=== PATIENT | female | born 1990 | race Caucasian/White ===

== ENCOUNTER 2017-07-16 23:31 | Emergency (ER) | payer SELFPAY ==
--- NOTE | 2017-07-16 23:58 | EDM.PDOC ---
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 Was in May which would put her at 9 weeks . She presents today with complaints of lower abdominal cramping that has been on and off and some vaginal spotting when she wipes with the toilet tissue. She has not had to use a pad and less sexual intercourse was 5 days ago. She has no nausea vomiting fever chills or diffuse abdominal pain and no urinary complaints. Had no STDs in the past or any PID or surgical intervention of her tubes or ovaries. Patient has delivered in the past in [place] as one of her children was a preemie and she plans on delivering there again. She has not started care as she just did a test to find out she was . Patient has been eating and drinking normally Review of systems: As per history of present illness and below otherwise all systems reviewed and negative. Past medical history: As per history of present illness and as reviewed below otherwise noncontributory. Surgical history: As per history of present illness and as reviewed below otherwise noncontributory. Social history: No reported history of drug or alcohol abuse. Family history: As per history of present illness and as reviewed below otherwise noncontributory. Physical exam: Gen.: Well-developed well-nourished female who is nontoxic and ambulatory in the ED. Vital signs of the note by me HEENT: Atraumatic, normocephalic, negative for conjunctival pallor or scleral icterus, mucous membranes moist, throat clear, neck supple, nontender, trachea midline. Lungs: Clear to auscultation, breath sounds equal bilaterally, chest nontender. Heart: S1S2, regular and rhythm on my evaluation and no overt murmurs Abdomen: Soft, nondistended, nontender. NABS Pelvis: Stable nontender. Genitourinary: Deferred. Rectal: Deferred. Extremities: Atraumatic, negative for cords or calf pain. Neurovascular unremarkable. Neuro: Awake, alert, oriented. Cranial nerves II through XII unremarkable. Cerebellum unremarkable. Motor and sensory unremarkable throughout. Exam nonfocal. Diagnostics: CBC UA, urine culture if indicated, serum quantitative hCG pelvic ultrasound Therapeutics: Patient was offered Tylenol for the cramping and she defers at this time Patient is O- so RhoGam was ordered and will be given Patient is aware of all testing results including the ultrasound revealing a possible gestational sac in the uterus but also bilateral ovarian cyst with a complex ovarian cyst on the left. This would explain her bilateral lower back pain. She is aware that this may be a that is not progressing normally and that she will have to have a repeat hormone level done in 2 days and close follow-up in our clinic. Advised her to call the clinic this morning at 8 AM to get an appointment in 2 days and to have her hormone level repeated in 2 days. Advised on reasons to return to the ER, hydration, and strict pelvic rest Impression: Threatened Definitive disposition and diagnosis as appropriate pending reevaluation and review of above. Lower Back Pain Score (Numeric/FACES): 6 - Related Data Allergies Allergy/AdvReac Type Severity Reaction Status Date / Time No Known Allergies Allergy Verified 07/16/17 23:43 Home Meds: Home Meds . 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 History: subchorionic hemmorrhage during one of her past pregnancies, had this child 2 months early, Musculoskeletal History: Reports: None Neurological History: Reports: None Psychiatric History: Reports: None Endocrine/Metabolic History: Reports: None Hematologic History: Reports: None Immunologic History: Reports: None Oncologic (Cancer) History: Reports: None Dermatologic History: Reports: None - Infectious Disease History Infectious Disease History: Reports: Chicken Pox - Past Surgical History Head Surgeries/Procedures: Reports: None HEENT Surgical History: Reports: Other (See Below) Other HEENT Surgeries/Procedures: benign cyst from behind left ear. Musculoskeletal Surgical History: Reports: None Dermatological Surgical History: Reports: None Social & Family History - Family History Family Medical History: Noncontributory - Tobacco Use Smoking Status *Q: Never Smoker Second Hand Smoke Exposure: No - Caffeine Use Caffeine Use: Reports: Energy Drinks, Soda - Alcohol Use Days Per Week of Alcohol Use: 0 - Recreational Drug Use Recreational Drug Use: No ED ROS GENERAL - Review of Systems Review Of Systems: ROS reveals no pertinent complaints other than HPI. ED EXAM, GENERAL - Physical Exam Exam: See Below (See dictation) Course - Vital Signs Last Recorded V/S: Last Vital Signs Temp 36.6 C 07/16/17 23:40 Pulse 108 H 07/16/17 23:40 Resp 16 07/16/17 23:40 BP 139/91 H 07/16/17 23:40 Pulse Ox 98 07/16/17 23:40 - Orders/Labs/Meds Orders: Active Orders 24 hr Category Date Time Status OB 1st Tri Sgl 1st Gest [US] Stat Exams 07/16/17 23:53 Taken Labs: Laboratory Tests 07/16/17 07/17/17 07/17/17 Range/Units 23:56 00:07 00:07 WBC 7.72 (4.0-11.0) K/uL RBC 4.49 (4.30-5.90) M/uL Hgb 12.9 (12.0-16.0) g/dL Hct 38.0 (36.0-46.0) % MCV 84.6 (80.0-98.0) fL MCH 28.7 (27.0-32.0) pg MCHC 33.9 (31.0-37.0) g/dL RDW Std Deviation 41.7 (28.0-62.0) fl RDW Coeff of Suki 14 (11.0-15.0) % Plt Count 319 (150-400) K/uL MPV 10.10 (7.40-12.00) fL Neut % (Auto) 53.8 (48.0-80.0) % Lymph % (Auto) 36.0 (16.0-40.0) % Davie % (Auto) 7.8 (0.0-15.0) % Eos % (Auto) 1.9 (0.0-7.0) % Baso % (Auto) 0.5 (0.0-1.5) % Neut # (Auto) 4.2 (1.4-5.7) K/uL Lymph # (Auto) 2.8 H (0.6-2.4) K/uL Davie # (Auto) 0.6 (0.0-0.8) K/uL Eos # (Auto) 0.2 (0.0-0.7) K/uL Baso # (Auto) 0.0 (0.0-0.1) K/uL Nucleated RBC % 0.0 /100WBC Nucleated RBCs # 0 K/uL HCG, Quant 3140.4 mIU/mL Urine Color YELLOW Urine Appearance CLEAR Urine pH 6.0 (5.0-8.0) Ur Specific [place] <= 1.005 (1.001-1.035) Urine Protein NEGATIVE (NEGATIVE) mg/dL Urine Glucose (UA) NEGATIVE (NEGATIVE) mg/dL Urine Ketones NEGATIVE (NEGATIVE) mg/dL Urine Occult Blood NEGATIVE (NEGATIVE) Urine Nitrite NEGATIVE (NEGATIVE) Urine Bilirubin NEGATIVE (NEGATIVE) Urine Urobilinogen 0.2 (<2.0) EU/dL Ur Leukocyte Esterase NEGATIVE (NEGATIVE) Urine RBC 0-1 (0-2/HPF) Urine WBC 0-1 (0-5/HPF) Ur Epithelial Cells FEW (NONE-FEW) Urine Bacteria FEW (NEGATIVE) Blood Type Antibody Screen 07/17/17 Range/Units 00:07 WBC (4.0-11.0) K/uL RBC (4.30-5.90) M/uL Hgb (12.0-16.0) g/dL Hct (36.0-46.0) % MCV (80.0-98.0) fL MCH (27.0-32.0) pg MCHC (31.0-37.0) g/dL RDW Std Deviation (28.0-62.0) fl RDW Coeff of Suki (11.0-15.0) % Plt Count (150-400) K/uL MPV (7.40-12.00) fL Neut % (Auto) (48.0-80.0) % Lymph % (Auto) (16.0-40.0) % Davie % (Auto) (0.0-15.0) % Eos % (Auto) (0.0-7.0) % Baso % (Auto) (0.0-1.5) % Neut # (Auto) (1.4-5.7) K/uL Lymph # (Auto) (0.6-2.4) K/uL Davie # (Auto) (0.0-0.8) K/uL Eos # (Auto) (0.0-0.7) K/uL Baso # (Auto) (0.0-0.1) K/uL Nucleated RBC % /100WBC Nucleated RBCs # K/uL HCG, Quant mIU/mL Urine Color Urine Appearance Urine pH (5.0-8.0) Ur Specific [place] (1.001-1.035) Urine Protein (NEGATIVE) mg/dL Urine Glucose (UA) (NEGATIVE) mg/dL Urine Ketones (NEGATIVE) mg/dL Urine Occult Blood (NEGATIVE) Urine Nitrite (NEGATIVE) Urine Bilirubin (NEGATIVE) Urine Urobilinogen (<2.0) EU/dL Ur Leukocyte Esterase (NEGATIVE) Urine RBC (0-2/HPF) Urine WBC (0-5/HPF) Ur Epithelial Cells (NONE-FEW) Urine Bacteria (NEGATIVE) Blood Type O NEGATIVE Antibody Screen NEGATIVE Meds: Medications Discontinued Medications Generic Name Dose Route Start Last Admin Trade Name Freq PRN Reason Stop Dose Admin Rho Immune Globulin 300 mcg 07/17/17 01:17 Rhophylac IM 07/17/17 01:18 ONETIME ONE Departure - Departure Time of Disposition: 01:48 Disposition: Home, Self-Care 01 Condition: Good Clinical Impression: Threatened - Discharge Information Referrals: PCP,None [Primary Care Provider] - Forms: ED Department Discharge Additional Instructions: The following information is given to patients seen in the emergency department who are being discharged to home. This information is to outline your options for follow-up care. We provide all patients seen in our emergency department with a follow-up referral. The need for follow-up, as well as the timing and circumstances, are variable depending upon the specifics of your emergency department visit. If you don't have a primary care physician on staff, we will provide you with a referral. We always advise you to contact your personal physician following an emergency department visit to inform them of the circumstance of the visit and for follow-up with them and/or the need for any referrals to a consulting specialist. The emergency department will also refer you to a specialist when appropriate. This referral assures that you have the opportunity for followup care with a specialist. All of these measure are taken in an effort to provide you with optimal care, which includes your followup. Under all circumstances we always encourage you to contact your private physician who remains a resource for coordinating your care. When calling for followup care, please make the office aware that this follow-up is from your recent emergency room visit. If for any reason you are refused follow-up, please contact the [facility] emergency department at and ask to speak to the emergency department charge nurse. [facility] Primary care-Women's Health [address] [address] Push hydration pelvic rest, nothing in vagina until you're followed up in the clinic, and get your hormone level rechecked in 2 days as prescribed. Please call the clinic first thing in the morning at 8 AM to get a follow-up appointment in 2-3 days and return to the ER as needed and as discussed. - My Orders Last 24 Hours: My Active Orders 07/16/17 23:53 OB 1st Tri Sgl 1st Gest [US] Stat - Assessment/Plan Last 24 Hours: My Active Orders 07/16/17 23:53 OB 1st Tri Sgl 1st Gest [US] Stat
[2017-07-17] MEDS ORDERED: Rho(D) Immune Globulin 300 MCG/2 ML Syringe IM ONE (01:17)
[2017-07-17 02:25] VITALS: BP 113/59
--- NOTE | 2017-07-17 10:07 | US ---
EXAM DATE: 07/16/17 PATIENT'S AGE: 27 Patient: LANRE MURILLO Facility: [place], [place] Site . Site : 1990 Study: US OB Pelvis [id number]/17/2017 1:12:46 AM Ordering Physician: Reyna Kang Final Report: INDICATION: WITH VAGINAL BLEEDING, CRAMPING. HCG LEVEL 3140. TECHNIQUE: Ultrasound OB pelvis transabdominal and transvaginal. Real time austin scale imaging of the pelvis was performed. COMPARISON: None FINDINGS: Small amount of fluid in the endometrial canal with possible gestational sac in the left superior margin of the endometrium. Possible gestational sac measures 10 x 12 millimeters. No pole or yolk sac identified. Endometrial thickness measures 12 millimeters. Complex left ovarian cyst with peripheral color Doppler flow, measuring 2.8 x 3.3 x 2.9 centimeters. Right ovarian cyst with peripheral color Doppler flow, measuring 2.3 x 1.9 centimeters. No definite echogenic free pelvic fluid identified. IMPRESSION: 1. Likely small intrauterine gestational sac, possibly malpositioned in the left fundal endometrium. No pole or yolk sac identified, possibly due to early gestation or failed 1st trimester . 2. Mildly complex bilateral ovarian cysts with peripheral color Doppler flow. Findings are nonspecific with possible ectopic included in differential but less likely etiology due to lack of significant echogenic free pelvic fluid. Left ovary has sonographic appearance suggestive of possible hemorrhagic cyst with right ovary suggesting a corpus luteum cyst. Recommend followup pelvic ultrasound within 1 week with close clinical followup and correlation with HCG levels. Dictated by Mahad Gurrola MD @ 07/17/2017 1:26:09 AM Dictated by: Mahad Gurrola MD @ 07/17/2017 01:26:22 ----- ADDENDUM ----- ADDENDUM: 1. 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 Dictated by Mahad Gurrola MD @ Jul 17 2017 1:48AM (Electronic Signature) Report Signed by Proxy. DAVID
== END 2017-07-17 02:22 | disposition home or self-care (01) ==
LOC: MW.ED 23:31
DX: O20.0 Threatened abortion (principal); O34.81 Maternal care for other abnormalities of pelvic organs, first trimester; N83.202 Unspecified ovarian cyst, left side; N83.11 Corpus luteum cyst of right ovary; Z3A.01 Less than 8 weeks gestation of pregnancy
CPT/HCPCS: 36415; 76801; 81001; 84702; 85025; 86850; 86900; 86901; 96372; 99284; J2790

== ENCOUNTER 2017-10-14 00:46 | Emergency (ER) | payer BC ==
[2017-10-14 01:04] VITALS: BP 126/67
[2017-10-14] MEDS ORDERED: Benzocaine 20% Topical Spray UD MUCMEM ONE (01:05)
[2017-10-14] MEDS ORDERED: Lidocaine 2% Viscous Solution 15 ML Cup PO ONE (01:05)
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
== END 2017-10-14 01:30 | disposition home or self-care (01) ==
LOC: MW.ED 00:46
DX: O99.612 Diseases of the digestive system complicating pregnancy, second trimester (principal); K08.89 Other specified disorders of teeth and supporting structures; Z3A.17 17 weeks gestation of pregnancy
CPT/HCPCS: 99283; A9270

== ENCOUNTER 2018-02-25 17:18 | Emergency (ER) | payer BC, MEDICAID ==
--- NOTE | 2018-02-25 17:30 | EDM.PDOC ---
ED HPI GENERAL MEDICAL PROBLEM - General Chief Complaint: Behavioral/Psych Stated Complaint: ANXIETY/ 37 WEEKS Time Seen by Provider: 02/25/18 17:22 - History of Present Illness INITIAL COMMENTS - FREE TEXT/NARRATIVE: HISTORY AND PHYSICAL: History of present illness: Patient 27-year-old female presents with a concern of acute anxiety she recently had her children removed from the home per child protective services and presents here with anxiety related to this event she is 37 weeks she denies any abdominal pain vaginal discharge bleeding fever chills nausea vomiting or any other complaints. Review of systems: As per history of present illness and below otherwise all systems reviewed and negative. Past medical history: As per history of present illness and as reviewed below otherwise noncontributory. Surgical history: As per history of present illness and as reviewed below otherwise noncontributory. Social history: No reported history of drug or alcohol abuse. Family history: As per history of present illness and as reviewed below otherwise noncontributory. Physical exam: HEENT: Atraumatic, normocephalic, pupils reactive, negative for conjunctival pallor or scleral icterus, mucous membranes moist, throat clear, neck supple, nontender, trachea midline. Lungs: Clear to auscultation, breath sounds equal bilaterally, chest nontender. Heart: S1S2, regular, negative for clicks, rubs, or JVD. Abdomen: Soft, nondistended, nontender. Negative for masses or hepatosplenomegaly. Negative for costovertebral tenderness. Pelvis: Stable nontender. Genitourinary: Deferred. Rectal: Deferred. Extremities: Atraumatic, negative for cords or calf pain. Neurovascular unremarkable. Neuro: Awake, alert, anxious, oriented. Cranial nerves II through XII unremarkable. Cerebellum unremarkable. Motor and sensory unremarkable throughout. Exam nonfocal. Diagnostics: heart tones Therapeutics: None Impression: #137 week intrauterine #2 anxiety Definitive disposition and diagnosis as appropriate pending reevaluation and review of above. - Related Data Allergies Allergy/AdvReac Type Severity Reaction Status Date / Time No Known Allergies Allergy Verified 10/14/17 01:01 Home Meds: Home Meds . 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: Other DISPATCH CLERK History: subchorionic hemmorrhage during one of her past pregnancies, had this child 2 months early, Musculoskeletal History: Reports: None Neurological History: Reports: None Psychiatric History: Reports: None Endocrine/Metabolic History: Reports: None Hematologic History: Reports: None Immunologic History: Reports: None Oncologic (Cancer) History: Reports: None Dermatologic History: Reports: None - Infectious Disease History Infectious Disease History: Reports: Chicken Pox - Past Surgical History Head Surgeries/Procedures: Reports: None HEENT Surgical History: Reports: Other (See Below) Other HEENT Surgeries/Procedures: benign cyst from behind left ear. Musculoskeletal Surgical History: Reports: None Dermatological Surgical History: Reports: None Social & Family History - Family History Family Medical History: Noncontributory - Caffeine Use Caffeine Use: Reports: Energy Drinks, Soda ED ROS GENERAL - Review of Systems Review Of Systems: ROS reveals no pertinent complaints other than HPI. ED EXAM, GENERAL - Physical Exam Exam: See Below (The dictation) Departure - Departure Time of Disposition: 17:29 Disposition: Home, Self-Care 01 Condition: Good Clinical Impression: Third trimester , Anxiety - Discharge Information *PRESCRIPTION DRUG MONITORING PROGRAM REVIEWED*: Not Applicable *COPY OF PRESCRIPTION DRUG MONITORING REPORT IN PATIENT SHIRA: Not Applicable Additional Instructions: The following information is given to patients seen in the emergency department who are being discharged to home. This information is to outline your options for follow-up care. We provide all patients seen in our emergency department with a follow-up referral. The need for follow-up, as well as the timing and circumstances, are variable depending upon the specifics of your emergency department visit. If you don't have a primary care physician on staff, we will provide you with a referral. We always advise you to contact your personal physician following an emergency department visit to inform them of the circumstance of the visit and for follow-up with them and/or the need for any referrals to a consulting specialist. The emergency department will also refer you to a specialist when appropriate. This referral assures that you have the opportunity for followup care with a specialist. All of these measure are taken in an effort to provide you with optimal care, which includes your followup. Under all circumstances we always encourage you to contact your private physician who remains a resource for coordinating your care. When calling for followup care, please make the office aware that this follow-up is from your recent emergency room visit. If for any reason you are refused follow-up, please contact the [facility] emergency department at and asked to speak to the emergency department charge nurse. Follow-up BRAND ADVOCATE and primary medical doctor as needed as discussed return as needed as discussed
[2018-02-25 17:34] VITALS: BP 116/63
== END 2018-02-25 18:00 | disposition home or self-care (01) ==
LOC: MW.ED 17:18
DX: O99.343 Other mental disorders complicating pregnancy, third trimester (principal); F41.9 Anxiety disorder, unspecified; Z3A.37 37 weeks gestation of pregnancy
CPT/HCPCS: 99283

== ENCOUNTER 2018-03-23 00:12 | Inpatient (IN) | payer MEDICAID ==
[2018-03-23] MEDS ORDERED: Misoprostol 25 MCG (1/4 of 100 MCG) Tab PO ONE (00:30)
[2018-03-23] MEDS ORDERED: Misoprostol 200 MCG Tab PO PRN (00:40)
[2018-03-23] MEDS ORDERED: Butorphanol 1 MG/ML SDV IVPUSH PRN (00:40)
[2018-03-23] MEDS ORDERED: Methylergonovine 0.2 MG/1 ML Amp IM PRN (00:40)
[2018-03-23] MEDS ORDERED: Nalbuphine 10 MG/1 ML Vial IVPUSH PRN (00:40)
[2018-03-23] MEDS ORDERED: Water For Irrigation,Sterile 1,000 ML Container IRR PRN (00:40)
[2018-03-23] MEDS ORDERED: Lidocaine 1% 50 ML MDV INJECT PRN (00:40)
[2018-03-23] MEDS ORDERED: Ampicillin 2 GM in Sodium Chloride 0.9% 100 ML IV ONE (00:40)
[2018-03-23] MEDS ORDERED: Carboprost Tromethamine 250 MCG/1 ML Amp IM PRN (00:40)
[2018-03-23] MEDS ORDERED: Sodium Chloride 0.9% 2.5 ML Syringe FLUSH PRN (00:40)
[2018-03-23] MEDS ORDERED: Sodium Chloride 0.9% 10 ML Syringe FLUSH PRN (00:40)
[2018-03-23] MEDS ORDERED: Tranexamic Acid 1,000 MG in Sodium Chloride 0.9% 100 ML IV PRN (00:40)
[2018-03-23] MEDS ORDERED: Lactated Ringers 1,000 ML IV SCH (00:45)
[2018-03-23] MEDS ORDERED: Oxytocin/0.9 % Sodium Chloride 30 UNIT/500 ML BAG IV SCH ×2 (00:45→01:00)
[2018-03-23] MEDS ORDERED: Terbutaline 1 MG/ML SDV SUBCUT PRN (00:46)
[2018-03-23] MEDS ORDERED: Misoprostol 25 MCG (1/4 of 100 MCG) Tab VAG PRN ×2 (00:46)
[2018-03-23] MEDS ORDERED: Nalbuphine 20 MG/1 ML Amp IVPUSH PRN (03:22)
[2018-03-23] MEDS ORDERED: Nalbuphine 10 MG/1 ML Vial ONE (03:26)
[2018-03-23] MEDS ORDERED: Ampicillin 1 GM AdvVial IV ONE (04:19)
[2018-03-23] MEDS ORDERED: oxyCODONE 5 MG Tab PO PRN (04:48)
[2018-03-23] MEDS ORDERED: Ibuprofen 400 MG Tab PO PRN (04:48)
[2018-03-23] MEDS ORDERED: Acetaminophen 500 MG Tab PO PRN ×2 (04:48)
[2018-03-23] MEDS ORDERED: Docusate Sodium 100 MG Cap PO PRN (04:48)
[2018-03-23] MEDS ORDERED: Lanolin 100% Cream 7 GM Tube TOP PRN (04:48)
[2018-03-23] MEDS ORDERED: Benzocaine/Menthol 20%-0.5% Spray 78 GM Cannister TOP PRN (04:48)
[2018-03-23] MEDS ORDERED: Bisacodyl 10 MG Supp RECTAL PRN (04:48)
[2018-03-23] MEDS ORDERED: Witch Hazel Medicated Pads 40/Jar TOP PRN (04:48)
--- NOTE | 2018-03-23 04:48 | PCM.LDHP ---
L&D History of Present Illness - General Date of Service: 03/23/18 Admit Problem/Dx: Admission Diagnosis/Problem Admission Diagnosis/Problem Source of Information: Patient History Limitations: Reports: No Limitations - History of Present Illness Pain Score: 7 Improves with: Reports: None Worsens with: Reports: None Associated Symptoms: Reports: N - Related Data Allergies/Adverse Reactions: Allergies Allergy/AdvReac Type Severity Reaction Status Date / Time No Known Allergies Allergy Verified 02/25/18 17:35 Home Medications: Home Meds . [No Known Home Meds] 09/18/15 [History] Past Medical History HEENT History: Reports: None Cardiovascular History: Reports: None Respiratory History: Reports: None Gastrointestinal History: Reports: None Genitourinary History: Reports: None PARKING OFFICER History: Reports: Other OB/BYN History: subchorionic hemmorrhage during one of her past pregnancies, had that child 2 months early, Musculoskeletal History: Reports: None Neurological History: Reports: None Psychiatric History: Reports: Other (See Below) Other Psychiatric History: post pardum depression Endocrine/Metabolic History: Reports: None Hematologic History: Reports: None Immunologic History: Reports: None Oncologic (Cancer) History: Reports: None Dermatologic History: Reports: None - Infectious Disease History Infectious Disease History: Reports: Chicken Pox - Past Surgical History Head Surgeries/Procedures: Reports: None HEENT Surgical History: Reports: Other (See Below) Other HEENT Surgeries/Procedures: benign cyst from behind left ear. Cardiovascular Surgical History: Reports: None Respiratory Surgical History: Reports: None GI Surgical History: Reports: None Musculoskeletal Surgical History: Reports: None Dermatological Surgical History: Reports: None Social & Family History - Family History Family Medical History: Noncontributory - Tobacco Use Smoking Status *Q: Never Smoker Second Hand Smoke Exposure: No - Caffeine Use Caffeine Use: Reports: Soda - Recreational Drug Use Recreational Drug Use: No H&P Review of Systems - Review of Systems: Review Of Systems: See Below General: Reports: No Symptoms HEENT: Reports: No Symptoms Pulmonary: Reports: No Symptoms Cardiovascular: Reports: No Symptoms Gastrointestinal: Reports: No Symptoms Genitourinary: Reports: No Symptoms Musculoskeletal: Reports: No Symptoms Skin: Reports: No Symptoms Psychiatric: Reports: No Symptoms Neurological: Reports: No Symptoms Hematologic/Lymphatic: Reports: No Symptoms Immunologic: Reports: No Symptoms L&D Exam - Exam Exam: See Below - Vital Signs Weight: 85.275 kg - OB Specific Fundal Height In cm: 38 Contraction Intensity: Moderate Movement: Active Heart Tones: Present Presentation: Vertex - Valles Score Valles Score Cervix Position: Anterior Valles Score Consistency: Soft Valles Score Effacement: 51-70% Valles Score Dilation: > 5 cm Valles Score 's Station: -1 ,0 Valles Score Total: 11 - Exam General: Alert, Oriented HEENT: PERRLA, Conjunctiva Clear, EACs Clear, EOMI, Hearing Intact, Mucosa Moist & [place], Nares Patent, Normal Nasal Septum, Posterior Pharynx Clear, TMs Clear Neck: Supple, Trachea Midline Lungs: Clear to Auscultation, Normal Respiratory Effort Cardiovascular: Regular Rate, Regular Rhythm GI/Abdominal Exam: Normal Bowel Sounds, Soft, Non-Tender, No Organomegaly, No Distention, No Abnormal Bruit, No Mass, Pelvis Stable Rectal Exam: Normal Exam, Normal Rectal Tone Genitourinary: Normal external exam, Normal bimanual exam, Normal speculum exam Back Exam: Normal Inspection, Full Range of Motion Extremities: Normal Inspection, Normal Range of Motion, Non-Tender, No Pedal Edema, Normal Capillary Refill Skin: Warm, Dry, Intact Neurological: Cranial Nerves Intact, Reflexes Equal Bilateral Psychiatric: Alert, Normal Affect, Normal Mood - Patient Data Lab Results Last 24 hrs: Laboratory Results - last 24 hr 03/23/18 03/23/18 Range/Units 01:04 01:04 WBC 7.08 (4.0-11.0) K/uL RBC 3.67 L (4.30-5.90) M/uL Hgb 10.5 L (12.0-16.0) g/dL Hct 31.6 L (36.0-46.0) % MCV 86.1 (80.0-98.0) fL MCH 28.6 (27.0-32.0) pg MCHC 33.2 (31.0-37.0) g/dL RDW Std Deviation 42.1 (28.0-62.0) fl RDW Coeff of Suki 14 (11.0-15.0) % Plt Count 228 (150-400) K/uL MPV 10.70 (7.40-12.00) fL Blood Type O NEGATIVE Antibody Screen NEGATIVE Result Diagrams: 03/23/18 01:04 Problem List Initiated/Reviewed/Updated: Yes Orders Last 24hrs: Active Orders 24 hr Category Date Time Status Communication Order [RC] ASDIRECTED Care 03/23/18 00:46 Active Communication Order [RC] ASDIRECTED Care 03/23/18 00:46 Active Communication Order [RC] ASDIRECTED Care 03/23/18 00:46 Active Heart Tones [RC] CONTINUOUS Care 03/23/18 00:41 Inactive Non Stress Test [RC] PER UNIT ROUTINE Care 03/23/18 00:41 Inactive Notify Provider [RC] PRN Care 03/23/18 00:41 Inactive Notify Provider [RC] PRN Care 03/23/18 00:46 Active Notify Provider [RC] PRN Care 03/23/18 00:46 Active Notify Provider [RC] STAT Care 03/23/18 00:46 Active Oxygen Therapy [RC] ASDIRECTED Care 03/23/18 00:46 Active Vaginal Exam [RC] PRN Care 03/23/18 00:41 Inactive Vaginal Exam [RC] PRN Care 03/23/18 00:46 Active Vital Signs [RC] PER UNIT ROUTINE Care 03/23/18 00:41 Inactive Nalbuphine [Nubain] Med 03/23/18 03:22 Active 10 mg IVPUSH Q1H PRN Oxytocin/0.9 % Sodium Chloride [Oxytocin 30 Unit/500 ML Med 03/23/18 01:00 Active -NS] 30 unit in 500 ml IV TITRATE Sodium Chloride 0.9% [Saline Flush] Med 03/23/18 00:40 Active 10 ml FLUSH ASDIRECTED PRN Sodium Chloride 0.9% [Saline Flush] Med 03/23/18 00:40 Active 2.5 ml FLUSH ASDIRECTED PRN Terbutaline [Brethine] Med 03/23/18 00:46 Active 0.25 mg SUBCUT ASDIRECTED PRN miSOPROStol [Cytotec] Med 03/23/18 00:46 Active 25 mcg VAG ONETIME PRN miSOPROStol [Cytotec] Med 03/23/18 00:46 Active 25 mcg VAG Q4H PRN Medication Administration Instruction [OM.PC] Q3H Oth 03/23/18 01:00 Ordered Peripheral IV Insertion Adult [OM.PC] Routine Oth 03/23/18 00:41 Ordered Medication Orders Oxytocin/Sodium Chloride (Oxytocin 30 Unit/500 Ml-Ns) 30 unit in 500 mls @ 2 mls/hr IV TITRATE SULAIMAN; Protocol Misoprostol (Cytotec) 25 mcg VAG ONETIME PRN PRN Reason: Cervical Ripening Last Admin: 03/23/18 01:37 Dose: 25 mcg Misoprostol (Cytotec) 25 mcg VAG Q4H PRN PRN Reason: Cervical Ripening Nalbuphine HCl (Nubain) 10 mg IVPUSH Q1H PRN PRN Reason: Pain Sodium Chloride (Saline Flush) 10 ml FLUSH ASDIRECTED PRN PRN Reason: Keep Vein Open Sodium Chloride (Saline Flush) 2.5 ml FLUSH ASDIRECTED PRN PRN Reason: Keep Vein Open Terbutaline Sulfate (Brethine) 0.25 mg SUBCUT ASDIRECTED PRN PRN Reason: Tacysystole
[2018-03-23] MEDS ORDERED: Ampicillin 1 GM in Sodium Chloride 0.9% 50 ML IV SCH (05:00)
--- NOTE | 2018-03-23 05:53 | OR ---
SURGEON: Dillon Valdez MD DATE OF PROCEDURE: Ms. Hernandez is a 28-year-old. She is para 4-0-0-4. All her children delivered vaginally before. She was followed in our clinic primarily by me. Prenatally, her GBS status was positive and her diabetes screen was negative. Otherwise, she had no problem prenatally. The patient is 40+ weeks. She is admitted for elective induction. She was induced with Cytotec. She required only one dose of Cytotec 25 mg p.o. and 25 mg vaginally. The patient started milana and she is progressed, rather quickly. She was started on prophylactic antibiotics because of her GBS status. She received two doses, and she proceeded to continue to be progress to complete-complete vertex, 0 to +1 station. She was ruptured at the time of the delivery. Clear amniotic fluid. The patient was able to accomplish normal spontaneous vaginal delivery of a male fetus, cried immediately. scores were reported to be 8 and 9, and the weight is not available at this time. The placenta delivered spontaneous, complete, and intact. There was no need for episiotomy. There was no laceration, perineal or labial. Estimated blood loss is 250 to 300 mL in this . heart rate was category 1 through the entire process of labor. There was no complication in the labor and delivery. KAYLAN / CYNTHIA /[id number]
[2018-03-23] MEDS: Ibuprofen 800 MG Tab PO PRN ×2 (11:47→21:15)
[2018-03-24 10:49] VITALS: BP 117/69
[2018-03-24] MEDS: Ibuprofen 800 MG Tab PO PRN (12:43)
--- NOTE | 2018-03-24 13:02 | PCM.DCSUM1 ---
Discharge Summary - Hospital Course Diagnosis: Stroke: No - Discharge Data Discharge Date: 03/24/18 Discharge Disposition: Home, Self-Care 01 Condition: Good - Patient Instructions Diet: Usual Diet as Tolerated Driving: Do Not Drive Showering/Bathing: May Shower - Discharge Plan Home Medications: Home Meds . [No Known Home Meds] 09/18/15 [History] - General Info Date of Service: 03/24/18 Functional Status: Reports: Pain Controlled - Review of Systems General: Reports: No Symptoms HEENT: Reports: No Symptoms Pulmonary: Reports: No Symptoms Cardiovascular: Reports: No Symptoms Gastrointestinal: Reports: No Symptoms Genitourinary: Reports: No Symptoms Musculoskeletal: Reports: No Symptoms Skin: Reports: No Symptoms Neurological: Reports: No Symptoms Psychiatric: Reports: No Symptoms - Patient Data Vitals - Most Recent: Last Vital Signs Temp 36.7 C 03/24/18 09:00 Pulse 87 03/24/18 09:00 Resp 18 03/24/18 09:00 BP 117/69 03/24/18 09:00 Pulse Ox 96 03/24/18 09:00 Weight - Most Recent: 85.275 kg I&O - Last 24 hours: Intake & Output 03/23/18 03/24/18 03/24/18 22:59 06:59 14:59 Intake Total 2 Balance 2 Lab Results - Last 24 hrs: Laboratory Results - last 24 hr 03/23/18 03/24/18 Range/Units 06:00 05:17 Hgb 10.4 L (12.0-16.0) g/dL Hct 31.8 L (36.0-46.0) % Screen NEGATIVE (NEGATIVE) RhIG Candidate? YES Rhogam Indicated YES, BABY RH POS H Med Orders - Current: Current Medications Acetaminophen (Tylenol Extra Strength) 500 mg PO Q4H PRN PRN Reason: Pain Acetaminophen (Tylenol Extra Strength) 1,000 mg PO Q4H PRN PRN Reason: Pain Last Admin: 03/23/18 16:48 Dose: 1,000 mg Benzocaine/Menthol (Dermoplast Pain Relief 20%-0.5% [place]) 78 gm TOP ASDIRECTED PRN PRN Reason: Perineal Comfort Measure Bisacodyl (Dulcolax) 10 mg RECTAL ONETIME PRN PRN Reason: Constipation Docusate Sodium (Colace) 100 mg PO BID PRN PRN Reason: Constipation Last Admin: 03/23/18 21:15 Dose: 100 mg Emollient Ointment (Lansinoh Hpa) 0 gm TOP ASDIRECTED PRN PRN Reason: Sore Nipples Oxytocin/Sodium Chloride (Oxytocin 30 Unit/500 Ml-Ns) 30 unit in 500 mls @ 2 mls/hr IV TITRATE SULAIMAN; Protocol Last Titration: 03/23/18 05:37 Dose: Infused Ibuprofen (Motrin) 400 mg PO Q4H PRN PRN Reason: Pain Ibuprofen (Motrin) 800 mg PO Q6H PRN PRN Reason: Pain Last Admin: 03/24/18 12:43 Dose: 800 mg Misoprostol (Cytotec) 25 mcg VAG ONETIME PRN PRN Reason: Cervical Ripening Last Admin: 03/23/18 01:37 Dose: 25 mcg Misoprostol (Cytotec) 25 mcg VAG Q4H PRN PRN Reason: Cervical Ripening Nalbuphine HCl (Nubain) 10 mg IVPUSH Q1H PRN PRN Reason: Pain Oxycodone HCl (Oxycodone) 5 mg PO Q2H PRN PRN Reason: Pain Last Admin: 03/23/18 11:51 Dose: 5 mg Sodium Chloride (Saline Flush) 10 ml FLUSH ASDIRECTED PRN PRN Reason: Keep Vein Open Sodium Chloride (Saline Flush) 2.5 ml FLUSH ASDIRECTED PRN PRN Reason: Keep Vein Open Terbutaline Sulfate (Brethine) 0.25 mg SUBCUT ASDIRECTED PRN PRN Reason: Tacysystole Witch Liliane (Tucks) 1 pad TOP ASDIRECTED PRN PRN Reason: comfort care Discontinued Medications Ampicillin Sodium (Ampicillin) Confirm Administered Dose 1 gm IV .STK-MED ONE Stop: 03/23/18 04:20 Last Admin: 03/23/18 04:24 Dose: 1 gm Ampicillin Sodium 2 gm/ Sodium (Chloride) 100 mls @ 200 mls/hr IV ONETIME ONE Stop: 03/23/18 01:09 Last Admin: 03/23/18 01:23 Dose: 200 mls/hr Lactated Ringer's (Ringers, Lactated) 1,000 mls @ 150 mls/hr IV ASDIRECTED SULAIMAN Last Admin: 03/23/18 01:23 Dose: 150 mls/hr Misoprostol (Cytotec) 25 mcg PO ONETIME ONE Stop: 03/23/18 00:31 Last Admin: 03/23/18 01:24 Dose: 25 mcg Nalbuphine HCl (Nubain) Confirm Administered Dose 10 mg .ROUTE .STK-MED ONE Stop: 03/23/18 03:27 Last Admin: 03/23/18 08:23 Dose: Not Given - Exam General: Reports: Alert, Oriented HEENT: Reports: Pupils Equal, Pupils Reactive, EOMI, Mucous Membr. Moist/[place] Neck: Reports: Supple Lungs: Reports: Clear to Auscultation, Normal Respiratory Effort Cardiovascular: Reports: Regular Rate, Regular Rhythm GI/Abdominal Exam: Normal Bowel Sounds, Soft, Non-Tender, No Organomegaly, No Distention, No Abnormal Bruit, No Mass, Pelvis Stable (Female) Exam: Normal External Exam, Normal Speculum Exam, Normal Bimanual Exam Rectal (Female) Exam: Normal Exam, Normal Rectal Tone Back Exam: Reports: Normal Inspection, Full Range of Motion Extremities: Normal Inspection, Normal Range of Motion, Non-Tender, No Pedal Edema, Normal Capillary Refill Skin: Reports: Warm, Dry, Intact Wound/Incisions: Reports: Healing Well Neurological: Reports: No New Focal Deficit Psy/Mental Status: Reports: Alert, Normal Affect, Normal Mood
== END 2018-03-24 13:40 | disposition home or self-care (01) | DRG 775 ==
LOC: MW.OBCHECK 00:12 → MW.OB 00:26 → MW.OBCHECK 00:41 → MW.OB 01:04 → OBSVTOIN 04:37 → MW.OB 09:19
PROVIDERS: ADMIT Obstetrics & Gynecology; ATTEND Obstetrics & Gynecology
PROC: 10E0XZZ Delivery of Products of Conception, External Approach (ICD-10-PCS; principal; 2018-03-23)
PROC: 10907ZC Drainage of Amniotic Fluid, Therapeutic from Products of Conception, Via Natural or Artificial Opening (ICD-10-PCS; 2018-03-23)
PROC: 3E0P7VZ Introduction of Hormone into Female Reproductive, Via Natural or Artificial Opening (ICD-10-PCS; 2018-03-23)
DX: O99.824 Streptococcus B carrier state complicating childbirth (principal); Z3A.40 40 weeks gestation of pregnancy; Z37.0 Single live birth
CPT/HCPCS: 36415; 59025; 59409; 85014; 85018; 85027; 85460; 86850; 86900; 86901; A9270-GY; J0290; J2300; J2590; J2792; J7030; J7120

== ENCOUNTER 2020-07-17 14:01 | Emergency (ER) | payer BC ==
--- NOTE | 2020-07-17 14:30 | EDM.PDOC ---
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 Patient does note history of migraine headaches but denies headache today. She denies any altered sensation to bilateral upper and lower extremities. She denies any muscle weakness in her face or bilateral upper or lower extremities. She denies fevers or any other symptoms. - Related Data Allergies Allergy/AdvReac Type Severity Reaction Status Date / Time No Known Allergies Allergy Verified 07/17/20 14:17 Home Meds: Home Meds valACYclovir HCl [valACYclovir] 1,000 mg PO TID 7 Days #21 tablet 07/17/20 [Rx] Past Medical History - Past Health History Medical/Surgical History: Denies Medical/Surgical History HEENT History: Reports: None Cardiovascular History: Reports: None Respiratory History: Reports: None Gastrointestinal History: Reports: None Genitourinary History: Reports: None TRAFFIC SIGNAL REPAIRER History: Reports: Other TRAFFIC SIGNAL REPAIRER History: subchorionic hemmorrhage during one of her past pregnancies, had that child 2 months early, Musculoskeletal History: Reports: None Neurological History: Reports: None Psychiatric History: Reports: Other (See Below) Other Psychiatric History: post pardum depression Endocrine/Metabolic History: Reports: None Hematologic History: Reports: None Immunologic History: Reports: None Oncologic (Cancer) History: Reports: None Dermatologic History: Reports: None - Infectious Disease History Infectious Disease History: Reports: Chicken Pox - Past Surgical History Head Surgeries/Procedures: Reports: None HEENT Surgical History: Reports: Other (See Below) Other HEENT Surgeries/Procedures: benign cyst from behind left ear. Cardiovascular Surgical History: Reports: None Respiratory Surgical History: Reports: None GI Surgical History: Reports: None Musculoskeletal Surgical History: Reports: None Dermatological Surgical History: Reports: None Social & Family History - Family History Family Medical History: No Pertinent Family History - Tobacco Use Tobacco Use Status *Q: Never Tobacco User - Caffeine Use Caffeine Use: Reports: Soda - Recreational Drug Use Recreational Drug Use: No - Living Situation & Occupation Living situation: Reports: Occupation: Unemployed ED ROS GENERAL - Review of Systems Review Of Systems: Comprehensive ROS is negative, except as noted in HPI. ED EXAM, GENERAL - Physical Exam Exam: See Below Exam Limited By: No Limitations General Appearance: Alert, WD/WN, No Apparent Distress Eye Exam: Bilateral Eye: EOMI, PERRL Ears: Normal External Exam, Normal Canal, Hearing Grossly Normal Nose: Normal Inspection Throat/Mouth: Normal Inspection, Normal Voice, No Airway Compromise Head: Atraumatic, Normocephalic Neck: Normal Inspection Respiratory/Chest: No Respiratory Distress, Lungs Clear, Normal Breath Sounds, No Accessory Muscle Use Cardiovascular: Normal Peripheral Pulses, Regular Rate, Rhythm GI/Abdominal: Soft, Non-Tender, Other (distended abdomen consistent with history of ) Extremities: Normal Inspection Neurological: Alert, Oriented, CN II-XII Intact (no facial muscle paralysis with normal smile and normal eyebrow raising; can feel me touch equally on both sides of face; subjective sensation of numbness/tingling to left face involving the forehead, maxillary face, and jaw), Normal Cognition, Normal Gait, No Motor/Sensory Deficits, Other (normal mm strength and sensation of b/l UE and LE) Psychiatric: Normal Affect, Normal Mood Skin Exam: Warm, Dry, Intact, Normal Color Course - Vital Signs Last Recorded V/S: Last Vital Signs Temp 98.3 F 07/17/20 14:18 Pulse 87 07/17/20 14:18 Resp 16 07/17/20 14:18 BP 114/65 07/17/20 14:18 Pulse Ox 98 07/17/20 14:18 - Re-Assessments/Exams Free Text/Narrative Re-Assessment/Exam: 07/17/20 14:49 Spoke with neurology at [facility] who notes that patient symptoms are most consistent with an early Orellana's palsy. She does not recommend any advanced imaging, and I agree. Patient has no objective findings on physical exam or any signs concerning for CVA. Will discharge patient with valacyclovir and TRAFFIC SIGNAL REPAIRER follow-up. 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 Medication has been sent to your pharmacy which may help. This medicine is unfortunately not 100% effective. You might notice facial muscle weakness of your left face. If you develop worst headache of life, muscle weakness in your upper or lower extremities, or any new or concerning symptoms you are encouraged to return to the emergency department for further evaluation. I spoke with the neurologist at [facility] who helped provide disposition recommendations. I would also recommend following up with your TRAFFIC SIGNAL REPAIRER. The following information is given to patients seen in the emergency department who are being discharged to home. This information is to outline your options for follow-up care. We provide all patients seen in our emergency department with a follow-up referral. The need for follow-up, as well as the timing and circumstances, are variable depending upon the specifics of your emergency department visit. If you don't have a primary care physician on staff, we will provide you with a referral. We always advise you to contact your personal physician following an emergency department visit to inform them of the circumstance of the visit and for follow-up with them and/or the need for any referrals to a consulting specialist. The emergency department will also refer you to a specialist when appropriate. This referral assures that you have the opportunity for follow-up care with a specialist. All of these measure are taken in an effort to provide you with o ptimal care, which includes your follow-up. Under all circumstances we always encourage you to contact your private physician who remains a resource for coordinating your care. When calling for follow-up care, please make the office aware that this follow-up is from your recent emergency room visit. If for any reason you are refused follow-up, please contact the [facility] Emergency Department at and asked to speak to the emergency department charge nurse. Please follow up with your primary care physician. If you do not have a primary care physician, see below: [facility] [address] [place] [id number] [facility] [address] [place] [id number] Sepsis Event Note (ED) - Evaluation Sepsis Screening Result: No Definite Risk - Focused Exam Vital Signs: Vital Signs Temp Pulse Resp BP Pulse Ox 07/17/20 14:18 98.3 F 87 16 114/65 98
[2020-07-17 15:22] VITALS: BP 98/52; PULSE 83
== END 2020-07-17 15:23 | disposition home or self-care (01) ==
LOC: MW.ED 14:01
DX: O99.353 Diseases of the nervous system complicating pregnancy, third trimester (principal); G51.0 Bell's palsy; Z3A.37 37 weeks gestation of pregnancy
CPT/HCPCS: 99283

== ENCOUNTER 2020-09-21 00:29 | Inpatient (IN) | payer BC ==
[2020-09-21] MEDS ORDERED: Tranexamic Acid 1,000 MG in Sodium Chloride 0.9% 100 ML IV PRN (00:40)
[2020-09-21] MEDS ORDERED: Lidocaine 1% 50 ML MDV INJECT PRN (00:40)
[2020-09-21] MEDS ORDERED: Sodium Chloride 0.9% 2.5 ML Syringe FLUSH PRN (00:40)
[2020-09-21] MEDS ORDERED: Butorphanol 1 MG/ML SDV IVPUSH PRN (00:40)
[2020-09-21] MEDS ORDERED: Terbutaline 1 MG/ML SDV SUBCUT PRN (00:40)
[2020-09-21] MEDS ORDERED: Ondansetron 4 MG/2 ML SDV IVPUSH PRN (00:40)
[2020-09-21] MEDS ORDERED: Water For Irrigation,Sterile 1,000 ML Container IRR PRN (00:40)
[2020-09-21] MEDS ORDERED: Nalbuphine 10 MG/1 ML Vial IVPUSH PRN (00:40)
[2020-09-21] MEDS ORDERED: Misoprostol 200 MCG Tab PO PRN (00:40)
[2020-09-21] MEDS ORDERED: Sodium Chloride 0.9% 10 ML SDV IV PRN (00:40)
[2020-09-21] MEDS ORDERED: Sodium Chloride 0.9% 10 ML Syringe FLUSH PRN (00:40)
[2020-09-21] MEDS ORDERED: Methylergonovine 0.2 MG/1 ML Amp IM PRN (00:40)
[2020-09-21] MEDS ORDERED: Carboprost Tromethamine 250 MCG/1 ML Amp IM PRN (00:40)
[2020-09-21] MEDS ORDERED: Oxytocin/0.9 % Sodium Chloride 30 UNIT/500 ML BAG IV SCH ×2 (00:45)
[2020-09-21] MEDS ORDERED: Ampicillin 2 GM in Sodium Chloride 0.9% 100 ML IV ONE (01:26)
[2020-09-21] MEDS ORDERED: Misoprostol 25 MCG (1/4 of 100 MCG) Tab VAG PRN ×2 (01:30→05:30)
[2020-09-21] MEDS: Lactated Ringers 1,000 ML IV SCH ×3 (01:33→05:16)
[2020-09-21] MEDS: Misoprostol 25 MCG (1/4 of 100 MCG) Tab PO SCH ×2 (02:06→06:26)
[2020-09-21] MEDS ORDERED: Ropivacaine 0.2% PF 2 MG/ML 20 ML SDV ONE (03:29)
[2020-09-21] MEDS ORDERED: Ropivacaine HCl/PF 100 ML ONE (03:30)
[2020-09-21] MEDS ORDERED: fentaNYL 100 MCG/2 ML SDV ONE (03:30)
--- NOTE | 2020-09-21 03:57 | PCM.LDHP ---
L&D History of Present Illness - General Date of Service: 09/21/20 Admit Problem/Dx: Patient Status Order with Admit Dx/Problem 09/21/20 00:41 Patient Status [ADT] Routine Admission Diagnosis/Problem Admission Diagnosis/Problem Planned 09/21/20 03:50 presenting to L&D for elective induction of labor at 39 2/7 weeks (TOMMY: 09/26/20 by 1st trimester ultrasound) due to "history of fast delivery". GBS positive, Rubella immune, O-. Vertex presentation by Juan Francisco. SVE: 1-2cm/65%/-3, soft, posterior per nurse report. 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 Cardiovascular History: Reports: None Respiratory History: Reports: None Gastrointestinal History: Reports: None Genitourinary History: Reports: None 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 Endocrine/Metabolic History: Reports: None Hematologic History: Reports: None Immunologic History: Reports: None Oncologic (Cancer) History: Reports: None Dermatologic History: Reports: Eczema - Infectious Disease History Infectious Disease History: Reports: Chicken Pox - Past Surgical History Head Surgeries/Procedures: Reports: None HEENT Surgical History: Reports: Other (See Below) Other HEENT Surgeries/Procedures: benign cyst from behind left ear (2007). Cardiovascular Surgical History: Reports: None Respiratory Surgical History: Reports: None GI Surgical History: Reports: None Neurological Surgical History: Reports: None Musculoskeletal Surgical History: Reports: None Dermatological Surgical History: Reports: None Social & Family History - Family History Family Medical History: No Pertinent Family History - Tobacco Use Tobacco Use Status *Q: Never Tobacco User Second Hand Smoke Exposure: No - Caffeine Use Caffeine Use: Reports: Soda Caffeine Use Comment: get one a day, but barely drink any of it. - Recreational Drug Use Recreational Drug Use: No - Living Situation & Occupation Living situation: Reports: Occupation: Unemployed H&P Review of Systems - Review of Systems: Review Of Systems: See Below General: Reports: No Symptoms HEENT: Reports: No Symptoms Pulmonary: Reports: No Symptoms Cardiovascular: Reports: No Symptoms Gastrointestinal: Reports: No Symptoms Genitourinary: Reports: No Symptoms Musculoskeletal: Reports: No Symptoms Skin: Reports: No Symptoms Psychiatric: Reports: No Symptoms Neurological: Reports: No Symptoms Hematologic/Lymphatic: Reports: No Symptoms Immunologic: Reports: No Symptoms L&D Exam - Exam Exam: See Below - Vital Signs Weight: 195 lb - OB Specific Movement: Active Heart Tones: Present Heart Rate (FHR) Variability: Moderate (6-25 bmp) Presentation: Vertex - Valles Score Valles Score Cervix Position: Posterior Valles Score Consistency: Soft Valles Score Effacement: 51-70% Valles Score Dilation: 1-2 cm Valles Score Infant's Station: -3 Valles Score Total: 5 - Exam General: Alert, Oriented, Cooperative Lungs: Normal Respiratory Effort Cardiovascular: Regular Rate, Regular Rhythm GI/Abdominal Exam: Soft, Non-Tender Rectal Exam: Deferred Genitourinary: Deferred Back Exam: Normal Inspection, Full Range of Motion Extremities: Normal Inspection, Normal Range of Motion, Non-Tender, Normal Capillary Refill Skin: Warm, Dry, Intact Neurological: Strength Equal Bilateral, Normal Speech, Normal Tone, Sensation Intact Psychiatric: Alert, Normal Affect, Normal Mood - Patient Data Lab Results Last 24 hrs: Laboratory Results - last 24 hr 09/21/20 09/21/20 Range/Units 01:21 01:21 WBC 7.89 (4.0-11.0) K/uL RBC 3.90 L (4.30-5.90) M/uL Hgb 10.3 L (12.0-16.0) g/dL Hct 31.4 L (36.0-46.0) % MCV 80.5 (80.0-98.0) fL MCH 26.4 L (27.0-32.0) pg MCHC 32.8 (31.0-37.0) g/dL RDW Std Deviation 38.7 (28.0-62.0) fl RDW Coeff of Suki 14 (11.0-15.0) % Plt Count 253 (150-400) K/uL MPV 10.80 (7.40-12.00) fL Blood Type O NEGATIVE Antibody Screen NEGATIVE Result Diagrams: 09/21/20 01:21 - Problem List (1) Supervision of normal IUP (intrauterine ) in multigravida SNOMED Code(s): 222558750, 580012463, 745289148 ICD Code: Z34.80 - ENCOUNTER FOR SUPRVSN OF NORMAL , UNSP TRIMESTER Status: Acute Priority: High Current Visit: Yes Qualifiers: Trimester: third trimester Qualified Code(s): Z34.83 - Encounter for supervision of other normal , third trimester Problem List Initiated/Reviewed/Updated: Yes Orders Last 24hrs: Active Orders 24 hr Category Date Time Status Patient Status [ADT] Routine ADT 09/21/20 00:41 Active Bedrest Bathroom Privileges [RC] ASDIRECTED Care 09/21/20 00:41 Active Communication Order [RC] ASDIRECTED Care 09/21/20 00:41 Active Communication Order [RC] ASDIRECTED Care 09/21/20 00:41 Active Communication Order [RC] ASDIRECTED Care 09/21/20 00:41 Active Heart Tones [RC] CONTINUOUS Care 09/21/20 00:41 Active Non Stress Test [RC] PER UNIT ROUTINE Care 09/21/20 00:41 Active May Shower [RC] ASDIRECTED Care 09/21/20 00:41 Active Notify Provider [RC] PRN Care 09/21/20 00:41 Active Notify Provider [RC] PRN Care 09/21/20 00:41 Active Notify Provider [RC] PRN Care 09/21/20 00:41 Active Notify Provider [RC] STAT Care 09/21/20 00:41 Active Oxygen Therapy [RC] ASDIRECTED Care 09/21/20 00:41 Active Up ad Zandra [RC] ASDIRECTED Care 09/21/20 00:41 Active Vaginal Exam [RC] PRN Care 09/21/20 00:41 Active Vaginal Exam [RC] PRN Care 09/21/20 00:41 Active Vital Signs [RC] PER UNIT ROUTINE Care 09/21/20 00:41 Active Vital Signs [RC] PER UNIT ROUTINE Care 09/21/20 00:41 Active RPR (SYPHILIS SERO) W/ RFLX [REF] Routine Lab 09/21/20 01:21 Received Ampicillin 1 gm Med 09/21/20 05:30 Active Sodium Chloride 0.9% [Normal Saline] 50 ml IV Q4H Butorphanol [Stadol] Med 09/21/20 00:40 Active 1 mg IVPUSH Q1H PRN Carboprost Tromethamine [Hemabate DS] Med 09/21/20 00:40 Active 250 mcg IM ASDIRECTED PRN Lactated Ringers [Ringers, Lactated] 1,000 ml Med 09/21/20 00:45 Active IV ASDIRECTED Lidocaine 1% [Xylocaine 1%] Med 09/21/20 00:40 Active 50 ml INJECT ONETIME PRN Methylergonovine [Methergine] Med 09/21/20 00:40 Active 0.2 mg IM ASDIRECTED PRN Nalbuphine [Nubain] Med 09/21/20 00:40 Active 10 mg IVPUSH Q1H PRN Ondansetron [Zofran] Med 09/21/20 00:40 Active 4 mg IVPUSH Q6H PRN Oxytocin/0.9 % Sodium Chloride [Oxytocin 30 Unit/500 ML Med 09/21/20 00:45 Active -NS] 30 unit in 500 ml IV TITRATE Oxytocin/0.9 % Sodium Chloride [Oxytocin 30 Unit/500 ML Med 09/21/20 00:45 Active -NS] 30 unit in 500 ml IV TITRATE Sodium Chloride 0.9% [Normal Saline] Med 09/21/20 00:40 Active 10 ml IV ASDIRECTED PRN Sodium Chloride 0.9% [Saline Flush] Med 09/21/20 00:40 Active 10 ml FLUSH ASDIRECTED PRN Sodium Chloride 0.9% [Saline Flush] Med 09/21/20 00:40 Active 2.5 ml FLUSH ASDIRECTED PRN Terbutaline [Brethine] Med 09/21/20 00:40 Active 0.25 mg SUBCUT ASDIRECTED PRN Tranexamic Acid [Cyklokapron] 1,000 mg Med 09/21/20 00:40 Active Sodium Chloride 0.9% [Normal Saline] 100 ml IV ONETIME Water For Irrigation,Sterile [Sterile Water for Med 09/21/20 00:40 Active Irrigation] 1,000 ml IRR ASDIRECTED PRN miSOPROStoL [Cytotec] Med 09/21/20 00:40 Active 200 mcg PO ONETIME PRN miSOPROStoL [Cytotec] Med 09/21/20 01:30 Active 25 mcg PO Q4H miSOPROStoL [Cytotec] Med 09/21/20 01:30 Active 25 mcg VAG ONETIME PRN miSOPROStoL [Cytotec] Med 09/21/20 05:30 Active 25 mcg VAG Q4H PRN Scalp Electrode [WOMSER] Per Unit Routine Oth 09/21/20 00:41 Ordered Medication Administration Instruction [OM.PC] Q3H Oth 09/21/20 00:45 Ordered Peripheral IV Insertion Adult [OM.PC] Routine Oth 09/21/20 00:41 Ordered Resuscitation Status Routine Resus Stat 09/21/20 00:40 Ordered Medication Orders Butorphanol Tartrate (Stadol) 1 mg IVPUSH Q1H PRN PRN Reason: Pain Carboprost Tromethamine (Hemabate Ds) 250 mcg IM ASDIRECTED PRN PRN Reason: Post Hemorrhage Oxytocin/Sodium Chloride (Oxytocin 30 Unit/500 Ml-Ns) 30 unit in 500 mls @ 500 mls/hr IV TITRATE [facility] Tranexamic Acid 1,000 mg/ (Sodium Chloride) 110 mls @ 660 mls/hr IV ONETIME PRN PRN Reason: Bleeding Oxytocin/Sodium Chloride (Oxytocin 30 Unit/500 Ml-Ns) 30 unit in 500 mls @ 2 mls/hr IV TITRATE [facility]; Protocol Lactated Ringer's (Ringers, Lactated) 1,000 mls @ 150 mls/hr IV ASDIRECTED SULAIMAN Last Admin: 09/21/20 01:33 Dose: 500 mls/hr Documented by: HINDTIF Ampicillin Sodium 1 gm/ Sodium (Chloride) 50 mls @ 100 mls/hr IV Q4H [facility] Lidocaine HCl (Xylocaine 1%) 50 ml INJECT ONETIME PRN PRN Reason: Laceration repair Methylergonovine Maleate (Methergine) 0.2 mg IM ASDIRECTED PRN PRN Reason: Post Hemorrhage Misoprostol (Cytotec) 200 mcg PO ONETIME PRN PRN Reason: Post Hemorrhage Misoprostol (Cytotec) 25 mcg VAG ONETIME PRN PRN Reason: Cervical Ripening Last Admin: 09/21/20 02:15 Dose: 25 mcg Documented by: JAVY Misoprostol (Cytotec) 25 mcg VAG Q4H PRN PRN Reason: Cervical Ripening Misoprostol (Cytotec) 25 mcg PO Q4H [facility] Last Admin: 09/21/20 02:06 Dose: 25 mcg Documented by: JAVY Nalbuphine HCl (Nubain) 10 mg IVPUSH Q1H PRN PRN Reason: Pain (severe 7-10) Ondansetron HCl (Zofran) 4 mg IVPUSH Q6H PRN PRN Reason: Nausea/Vomiting Sodium Chloride (Saline Flush) 10 ml FLUSH ASDIRECTED PRN PRN Reason: Keep Vein Open Sodium Chloride (Saline Flush) 2.5 ml FLUSH ASDIRECTED PRN PRN Reason: Keep Vein Open Sodium Chloride (Normal Saline) 10 ml IV ASDIRECTED PRN PRN Reason: IV Use Sterile Water (Sterile Water For Irrigation) 1,000 ml IRR ASDIRECTED PRN PRN Reason: delivery Terbutaline Sulfate (Brethine) 0.25 mg SUBCUT ASDIRECTED PRN PRN Reason: Tacysystole Assessment/Plan Comment:: Admit A: presenting to L&D for elective induction of labor at 39 2/7 weeks (TOMMY: 09/26/20 by 1st trimester ultrasound) due to "history of fast delivery". GBS positive, Rubella immune, O-. Vertex presentation by Ruben'ronnie. SVE: 1-2cm/65%/-3, soft, posterior per nurse report. P: Anticipate ; cytotec to pitocin PRN (discussion regarding off-label use of cytotec took place in the clinic prior to admission); epidural PRN; Dr. Valdez updated.
--- NOTE | 2020-09-21 04:26 | PCM.PREANE ---
Preanesthetic Assessment - Anesthesia/Transfusion/Family Hx Anesthesia History: Prior Anesthesia Without Reaction Family History of Anesthesia Reaction: No Transfusion History: No Prior Transfusion(s) - Review of Systems General: No Symptoms Pulmonary: No Symptoms Cardiovascular: No Symptoms Gastrointestinal: No Symptoms Neurological: No Symptoms Other: Reports: None (Denies any personal or family hx of bleeding or clotting problems) - Physical Assessment Height: 1.68 m Weight: 88.451 kg ASA Class: 2 Mental Status: Alert & Oriented x3 Airway Class: Mallampati = 2 Dentition: Reports: Normal Dentition - Lab Values: Laboratory Last Values WBC 7.89 K/uL (4.0-11.0) 09/21/20 01: RBC 3.90 M/uL (4.30-5.90) L 09/21/20 01: Hgb 10.3 g/dL (12.0-16.0) L 09/21/20 01:21 Hct 31.4 % (36.0-46.0) L 09/21/20 01:21 MCV 80.5 fL (80.0-98.0) 09/21/20 01:21 MCH 26.4 pg (27.0-32.0) L 09/21/20 01:21 MCHC 32.8 g/dL (31.0-37.0) 09/21/20 01: RDW Std Deviation 38.7 fl (28.0-62.0) 09/21/20 01:21 RDW Coeff of Suki 14 % (11.0-15.0) 09/21/20 01:21 Plt Count 253 K/uL (150-400) 09/21/20 01:21 MPV 10.80 fL (7.40-12.00) 09/21/20 01:21 Blood Type O NEGATIVE 09/21/20 01:21 Antibody Screen NEGATIVE 09/21/20 01:21 - Allergies Allergies/Adverse Reactions: Allergies Allergy/AdvReac Type Severity Reaction Status Date / Time No Known Allergies Allergy Verified 09/21/20 01:33 - Acknowledgements Anesthesia Type Planned: Epidural Pt an Appropriate Candidate for the Planned Anesthesia: Yes Alternatives and Risks of Anesthesia Discussed w Pt/Guardian: Yes Pt/Guardian Understands and Agrees with Anesthesia Plan: Yes PreAnesthesia Questionnaire - Past Health History Medical/Surgical History: Denies Medical/Surgical History HEENT History: Reports: Impaired Vision, Other (See Below) Other HEENT History: 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 Cardiovascular History: Reports: None Respiratory History: Reports: None Gastrointestinal History: Reports: None Genitourinary History: Reports: None 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 Endocrine/Metabolic History: Reports: None Hematologic History: Reports: None Immunologic History: Reports: None Oncologic (Cancer) History: Reports: None Dermatologic History: Reports: Eczema - Infectious Disease History Infectious Disease History: Reports: Chicken Pox - Past Surgical History Head Surgeries/Procedures: Reports: None HEENT Surgical History: Reports: Other (See Below) Other HEENT Surgeries/Procedures: benign cyst from behind left ear (2007). Cardiovascular Surgical History: Reports: None Respiratory Surgical History: Reports: None GI Surgical History: Reports: None Neurological Surgical History: Reports: None Musculoskeletal Surgical History: Reports: None Dermatological Surgical History: Reports: None - SUBSTANCE USE Tobacco Use Status *Q: Never Tobacco User Second Hand Smoke Exposure: No Recreational Drug Use History: No - CURRENT (IN HOUSE) MEDS Current Meds: Current Medications Butorphanol Tartrate (Stadol) 1 mg IVPUSH Q1H PRN PRN Reason: Pain Carboprost Tromethamine (Hemabate Ds) 250 mcg IM ASDIRECTED PRN PRN Reason: Post Hemorrhage Oxytocin/Sodium Chloride (Oxytocin 30 Unit/500 Ml-Ns) 30 unit in 500 mls @ 500 mls/hr IV TITRATE [facility] Tranexamic Acid 1,000 mg/ (Sodium Chloride) 110 mls @ 660 mls/hr IV ONETIME PRN PRN Reason: Bleeding Oxytocin/Sodium Chloride (Oxytocin 30 Unit/500 Ml-Ns) 30 unit in 500 mls @ 2 mls/hr IV TITRATE [facility]; Protocol Lactated Ringer's (Ringers, Lactated) 1,000 mls @ 150 mls/hr IV ASDIRECTED SULAIMAN Last Admin: 09/21/20 03:55 Dose: 999 mls/hr Documented by: Ampicillin Sodium 1 gm/ Sodium (Chloride) 50 mls @ 100 mls/hr IV Q4H [facility] Lidocaine HCl (Xylocaine 1%) 50 ml INJECT ONETIME PRN PRN Reason: Laceration repair Methylergonovine Maleate (Methergine) 0.2 mg IM ASDIRECTED PRN PRN Reason: Post Hemorrhage Misoprostol (Cytotec) 200 mcg PO ONETIME PRN PRN Reason: Post Hemorrhage Misoprostol (Cytotec) 25 mcg VAG ONETIME PRN PRN Reason: Cervical Ripening Last Admin: 09/21/20 02:15 Dose: 25 mcg Documented by: Misoprostol (Cytotec) 25 mcg VAG Q4H PRN PRN Reason: Cervical Ripening Misoprostol (Cytotec) 25 mcg PO Q4H [facility] Last Admin: 09/21/20 02:06 Dose: 25 mcg Documented by: Nalbuphine HCl (Nubain) 10 mg IVPUSH Q1H PRN PRN Reason: Pain (severe 7-10) Ondansetron HCl (Zofran) 4 mg IVPUSH Q6H PRN PRN Reason: Nausea/Vomiting Sodium Chloride (Saline Flush) 10 ml FLUSH ASDIRECTED PRN PRN Reason: Keep Vein Open Sodium Chloride (Saline Flush) 2.5 ml FLUSH ASDIRECTED PRN PRN Reason: Keep Vein Open Sodium Chloride (Normal Saline) 10 ml IV ASDIRECTED PRN PRN Reason: IV Use Sterile Water (Sterile Water For Irrigation) 1,000 ml IRR ASDIRECTED PRN PRN Reason: delivery Terbutaline Sulfate (Brethine) 0.25 mg SUBCUT ASDIRECTED PRN PRN Reason: Tacysystole Discontinued Medications Fentanyl (Sublimaze) Confirm Administered Dose 200 mcg .ROUTE .STK-MED ONE Stop: 09/21/20 03:31 Ampicillin Sodium 2 gm/ Sodium (Chloride) 100 mls @ 200 mls/hr IV ONETIME ONE Stop: 09/21/20 01:55 Last Admin: 09/21/20 02:05 Dose: 200 mls/hr Documented by: Ropivacaine (Naropin 0.2%) Confirm Administered Dose 100 mls @ as directed .ROUTE .STK-MED ONE Stop: 09/21/20 03:31 Ropivacaine (Naropin 0.2%) Confirm Administered Dose 20 ml .ROUTE .[facility]-MED ONE Stop: 09/21/20 03:30
[2020-09-21] MEDS ORDERED: hydrOXYzine Pamoate 25 MG Cap PO ONE (05:26)
[2020-09-21] MEDS ORDERED: Ampicillin 1 GM in Sodium Chloride 0.9% 50 ML IV SCH ×2 (05:30→10:20)
[2020-09-21] MEDS ORDERED: Ampicillin 1 GM Vial ONE (06:01)
[2020-09-21] MEDS ORDERED: Sodium Chloride 0.9% 50 ML ONE (06:02)
[2020-09-21] MEDS ORDERED: oxyCODONE 5 MG Tab PO PRN ×2 (12:23→13:03)
[2020-09-21] MEDS ORDERED: Bisacodyl 10 MG Supp RECTAL PRN ×2 (12:23→13:03)
[2020-09-21] MEDS ORDERED: Acetaminophen 500 MG Tab PO PRN ×4 (12:23→13:03)
[2020-09-21] MEDS ORDERED: Benzocaine/Menthol 20%-0.5% Spray 78 GM Cannister TOP PRN ×2 (12:23→13:03)
[2020-09-21] MEDS ORDERED: Docusate Sodium 100 MG Cap PO PRN ×2 (12:23→13:03)
[2020-09-21] MEDS ORDERED: Witch Hazel Medicated Pads 40/Jar TOP PRN ×2 (12:23→13:03)
[2020-09-21] MEDS ORDERED: Ibuprofen 400 MG Tab PO PRN ×2 (12:23→13:03)
[2020-09-21] MEDS ORDERED: Lanolin 100% Cream 7 GM Tube TOP PRN ×2 (12:23→13:03)
[2020-09-21] MEDS ORDERED: Ibuprofen 800 MG Tab PO PRN (13:03)
[2020-09-21] MEDS: Ibuprofen 800 MG Tab PO PRN (13:56)
--- NOTE | 2020-09-21 15:10 | OR ---
SURGEON: Dillon Valdez MD DATE OF PROCEDURE: 09/21/2020 This is a 30-year-old patient. She is para 4-0-2-4. She is 39 weeks. She is admitted for elective induction. Her was complicated for the fact that she is GBS positive. The patient was admitted early this morning. Induction with Cytotec and Pitocin was planned. The patient signed informed consent. Details of the medications of Cytotec and Pitocin explained to her in the office, and she consented for the induction and signed the informed consent. The patient required 3 doses of Cytotec, and then she progressed to 3 cm to 4 cm, vertex, 70%. She received 2 doses of antibiotic and then she had epidural anesthesia, and I proceeded around 9 o'clock in the morning to do spontaneous rupture of the membrane with clear fluid. The patient continued to contract adequately and then became complete-complete, and she was able to accomplish normal spontaneous vaginal delivery. scores reported to be 8 and 9. The weight was not available. The placenta delivered spontaneous, complete, and intact. There was no perineal, labial, or vaginal laceration. Estimated blood loss was 300 to 350 mL. heart rate was category 1 through the entire process of labor. There was 1 nuchal cord noted at the time of the delivery. There was no complication in the labor or in the delivery process of this patient. KAYLAN / CYNTHIA /[id number]
[2020-09-22] MEDS: Ibuprofen 800 MG Tab PO PRN (01:14)
--- NOTE | 2020-09-22 07:29 | PCM48HPAN ---
Post Anesthesia Note - EVALUATION WITHIN 48HRS OF ANESTHETIC Vital Signs in Normal Range: Yes Patient Participated in Evaluation: Yes Respiratory Function Stable: Yes Airway Patent: Yes Cardiovascular Function Stable: Yes Hydration Status Stable: Yes Pain Control Satisfactory: Yes Nausea and Vomiting Control Satisfactory: Yes Mental Status Recovered: Yes Vital Signs: Last Vital Signs Temp 36.8 C 09/22/20 01:30 Pulse 72 09/22/20 01:30 Resp 18 09/22/20 01:30 BP 108/75 09/22/20 01:30 Pulse Ox 98 09/22/20 01:30 - COMMENTS/OBSERVATIONS Free Text/Narrative:: The patient is sitting up in bed, and appears to be in no apparent distress. She has no complaints at this time. There were no apparent anesthetic complications at this time. Discharge from anesthesia care.
[2020-09-22 09:28] VITALS: BP 108/66; PULSE 73
--- NOTE | 2020-09-22 11:13 | PCM.PNPP ---
- General Info Date of Service: 09/22/20 Functional Status: Reports: Pain Controlled - Review of Systems General: Reports: No Symptoms HEENT: Reports: No Symptoms Pulmonary: Reports: No Symptoms Cardiovascular: Reports: No Symptoms Gastrointestinal: Reports: No Symptoms Genitourinary: Reports: No Symptoms Musculoskeletal: Reports: No Symptoms Skin: Reports: No Symptoms Neurological: Reports: No Symptoms Psychiatric: Reports: No Symptoms - General Info Date of Service: 09/22/20 - Patient Data Vital Signs - Most Recent: Last Vital Signs Temp 36.7 C 09/22/20 08:45 Pulse 73 09/22/20 08:45 Resp 18 09/22/20 08:45 BP 108/66 09/22/20 08:45 Pulse Ox 98 09/22/20 08:45 Weight - Most Recent: 88.451 kg I&O - Last 24 Hours: Intake & Output 09/21/20 09/22/20 09/22/20 22:59 06:59 14:59 Intake Total 2 Balance 2 Lab Results - Last 24 Hours: Laboratory Results - last 24 hr 09/21/20 09/22/20 Range/Units 13:39 05:18 Hgb 9.9 L (12.0-16.0) g/dL Hct 30.6 L (36.0-46.0) % Screen NEGATIVE (NEGATIVE) RhIG Candidate? YES Rhogam Indicated YES, BABY RH POS H Med Orders - Current: Current Medications Acetaminophen (Tylenol Extra Strength) 500 mg PO Q4H PRN PRN Reason: Pain Acetaminophen (Tylenol Extra Strength) 1,000 mg PO Q4H PRN PRN Reason: Pain Benzocaine/Menthol (Dermoplast Pain Relief 20%-0.5% Alpha) 78 gm TOP ASDIRECTED PRN PRN Reason: Perineal Comfort Measure Last Admin: 09/21/20 13:57 Dose: 1 canister Documented by: Bisacodyl (Dulcolax) 10 mg RECTAL ONETIME PRN PRN Reason: Constipation Docusate Sodium (Colace) 100 mg PO BID PRN PRN Reason: Constipation Emollient Ointment (Lansinoh Hpa) 0 gm TOP ASDIRECTED PRN PRN Reason: Sore Nipples Last Admin: 09/21/20 13:55 Dose: 1 tube Documented by: Ibuprofen (Motrin) 400 mg PO Q4H PRN PRN Reason: Pain Ibuprofen (Motrin) 800 mg PO Q6H PRN PRN Reason: Pain Last Admin: 09/22/20 01:14 Dose: 800 mg Documented by: Oxycodone HCl (Oxycodone) 5 mg PO Q2H PRN PRN Reason: Pain Witch Liliane (Tucks) 1 pad TOP ASDIRECTED PRN PRN Reason: comfort care Last Admin: 09/21/20 13:57 Dose: 1 tub Documented by: Discontinued Medications Ampicillin Sodium (Ampicillin) Confirm Administered Dose 1 gm .ROUTE .STK-MED ONE Stop: 09/21/20 06:02 Fentanyl (Sublimaze) Confirm Administered Dose 200 mcg .ROUTE .STK-MED ONE Stop: 09/21/20 03:31 Hydroxyzine Pamoate (Vistaril) 50 mg PO ONETIME ONE Stop: 09/21/20 05:27 Last Admin: 09/21/20 05:37 Dose: 50 mg Documented by: Oxytocin/Sodium Chloride (Oxytocin 30 Unit/500 Ml-Ns) 30 unit in 500 mls @ 2 mls/hr IV TITRATE SULAIMAN; Protocol Last Admin: 09/21/20 10:17 Dose: 2 munits/min, 2 mls/hr Documented by: Lactated Ringer's (Ringers, Lactated) 1,000 mls @ 150 mls/hr IV ASDIRECTED SULAIMAN Last Admin: 09/21/20 05:16 Dose: 150 mls/hr Documented by: Ampicillin Sodium 2 gm/ Sodium (Chloride) 100 mls @ 200 mls/hr IV ONETIME ONE Stop: 09/21/20 01:55 Last Admin: 09/21/20 02:05 Dose: 200 mls/hr Documented by: Ampicillin Sodium 1 gm/ Sodium (Chloride) 50 mls @ 100 mls/hr IV Q4H [facility] Last Admin: 09/21/20 06:16 Dose: 100 mls/hr Documented by: Ropivacaine (Naropin 0.2%) Confirm Administered Dose 100 mls @ as directed .ROUTE .STK-MED ONE Stop: 09/21/20 03:31 Sodium Chloride (Normal Saline) Confirm Administered Dose 50 mls @ as directed .ROUTE .STK-MED ONE Stop: 09/21/20 06:03 Ampicillin Sodium 1 gm/ Sodium (Chloride) 50 mls @ 100 mls/hr IV Q4H S[facility]IMAN Last Admin: 09/21/20 10:15 Dose: 100 mls/hr Documented by: Misoprostol (Cytotec) 25 mcg VAG ONETIME PRN PRN Reason: Cervical Ripening Last Admin: 09/21/20 02:15 Dose: 25 mcg Documented by: Misoprostol (Cytotec) 25 mcg VAG Q4H PRN PRN Reason: Cervical Ripening Last Admin: 09/21/20 06:26 Dose: 25 mcg Documented by: Misoprostol (Cytotec) 25 mcg PO Q4H [facility] Last Admin: 09/21/20 06:26 Dose: 25 mcg Documented by: Ropivacaine (Naropin 0.2%) Confirm Administered Dose 20 ml .ROUTE .STK-MED ONE Stop: 09/21/20 03:30 - Interaction Disposition, : in Room with Family Interaction: Holding Infant Feeding: Attempted ; Nursed Fair/Poor Support Person: - Recovery Exam Fundal Tone: Firm Fundal Level: 1 Fingerbreadths Below Umbilicus Fundal Placement: Midline Lochia Amount: Scant Lochia Color: Rubra/Red Perineum Description: Intact, Minimal Bruising/Swelling Episiotomy/Laceration: None Bladder Status: Voiding Urinary Elimination: Voided - Exam General: Alert, Oriented HEENT: Pupils Equal Neck: Supple Lungs: Clear to Auscultation, Normal Respiratory Effort Cardiovascular: Regular Rate, Regular Rhythm GI/Abdominal Exam: Normal Bowel Sounds, Soft, Non-Tender, No Organomegaly, No Distention, No Abnormal Bruit, No Mass, Pelvis Stable Extremities: Normal Inspection, Normal Range of Motion, Non-Tender, No Pedal Edema, Normal Capillary Refill Skin: Warm, Dry, Intact Wound/Incisions: Healing Well Neurological: No New Focal Deficit Psy/Mental Status: Alert, Normal Affect, Normal Mood - Problem List Review Problem List Initiated/Reviewed/Updated: Yes - My Orders Last 24 Hours: My Active Orders 09/21/20 12:23 Patient Status [ADT] Routine Up ad Zandra [RC] ASDIRECTED Acetaminophen [Tylenol Extra Strength] 1,000 mg PO Q4H PRN Acetaminophen [Tylenol Extra Strength] 500 mg PO Q4H PRN Benzocaine/Menthol [Dermoplast Pain Relief 20%-0.5% Alpha] 78 gm TOP ASDIRECTED PRN Docusate Sodium [Colace] 100 mg PO BID PRN Ibuprofen [Motrin] 400 mg PO Q4H PRN Ibuprofen [Motrin] 800 mg PO Q6H PRN Lanolin [Lansinoh HPA] See Dose Instructions TOP ASDIRECTED PRN bisacodyL [Dulcolax] 10 mg RECTAL ONETIME PRN oxyCODONE 5 mg PO Q2H PRN witch Liliane [Tucks] 1 pad TOP ASDIRECTED PRN Assess Lochia [WOMSER] Per Unit Routine Assess Uterine Involution [WOMSER] Per Unit Routine Peripheral IV Discontinue [OM.PC] Routine - Assessment Assessment:: Status post normal spontaneous vaginal delivery she is doing well she would be sent home today with the irregular post instruction - Plan Plan:: Admit A: presenting to L&D for elective induction of labor at 39 2/7 weeks (TOMMY: 09/26/20 by 1st trimester ultrasound) due to "history of fast delivery". GBS positive, Rubella immune, O-. Vertex presentation by Ruben'ronnie. SVE: 1-2cm/65%/-3, soft, posterior per nurse report. P: Anticipate ; cytotec to pitocin PRN (discussion regarding off-label use of cytotec took place in the clinic prior to admission); epidural PRN; Dr. Valdez updated.
== END 2020-09-22 15:30 | disposition home or self-care (01) | DRG 560 ==
LOC: MW.OBCHECK 00:29 → MW.OB 00:30 → MW.OBCHECK 00:41 → MW.OB 00:41 → OBSVTOIN 11:48 → MW.OB 19:55
PROVIDERS: ADMIT Obstetrics & Gynecology; ATTEND Obstetrics & Gynecology
PROC: 10E0XZZ Delivery of Products of Conception, External Approach (ICD-10-PCS; principal; 2020-09-21)
PROC: 3E0P7VZ Introduction of Hormone into Female Reproductive, Via Natural or Artificial Opening (ICD-10-PCS; 2020-09-21)
PROC: 3E033VJ Introduction of Other Hormone into Peripheral Vein, Percutaneous Approach (ICD-10-PCS; 2020-09-21)
PROC: 3E0R3BZ Introduction of Anesthetic Agent into Spinal Canal, Percutaneous Approach (ICD-10-PCS; 2020-09-21)
PROC: 00HU33Z Insertion of Infusion Device into Spinal Canal, Percutaneous Approach (ICD-10-PCS; 2020-09-21)
PROC: 3E0234Z Introduction of Serum, Toxoid and Vaccine into Muscle, Percutaneous Approach (ICD-10-PCS; 2020-09-21)
DX: O99.824 Streptococcus B carrier state complicating childbirth (principal); Z3A.39 39 weeks gestation of pregnancy; Z37.0 Single live birth; O26.893 Other specified pregnancy related conditions, third trimester; Z67.41 Type O blood, Rh negative
CPT/HCPCS: 01967; 36415; 36430; 51702; 59025; 59409; 85014; 85018; 85027; 85460; 86592; 86850; 86900; 86901; A9270-GY; J0290; J2590; J2792; J7120